=== PATIENT | female | born 1975 | race Two or more races ===

== ENCOUNTER 2016-10-14 05:00 | Inpatient (IN) | payer BC, OTHER ==
[2016-10-14 05:45] VITALS: BMI 25.7
[2016-10-14] MEDS ORDERED: Lactated Ringer's 1,000 ML IV SCH (05:45)
--- NOTE | 2016-10-14 05:45 | OBADHP ---
Datetime: 10/14/2016 05:42 Admit Comment, IP Provider: at 39weeks came with c/o ctxs started at 3.30 am, irrg, 10/07,no vb, lof, +fm. obhx primi pmh den med pnv allk nkda psh den soch den ve /-1 a/p at 39weeks in labor admit to l7d npo/ivf labs pain managem cont teodoro and efm anticipate Pelvic Type - PN: Adequate Extremities - PN: Normal Abdomen - PN: Normal Back - PN: Normal Breast - PN: Normal Lungs - PN: Normal Heart - PN: Normal Thyroid - PN: Normal Neurologic - PN: Normal HEENT - PN: Normal General - PN: Normal FHR - Baseline A Provider: 130 Contraction Comments Provider: q1-4 IP Hx Assessment: The History has been Reviewed and is Current Vital Signs Provider: Reviewed; Within Normal Limits IP Chief Complaint: Uterine contractions NICHD Variability Prov Fetus A: Moderate 6-25bpm NICHD Accel Fetus A IP Provider: [id number] FHR Category Provider Fetus A: Category I Dilatation, Provider: 5 Effacement, Provider: 100 Station, Provider: -1 Genitourinary Exam: Normal DTRs - PN: Normal IP Adm Impression: Term, intrauterine ; Active labor IP Admit Plan: Admit to unit; Initiate labor protocol
[2016-10-14] MEDS ORDERED: Oxycodone/Acetaminophen 5/325 mg Tab PO PRN (06:10)
[2016-10-14] MEDS ORDERED: Benzocaine/Menthol 20%-0.5% Topical Spray (60 ml) TOP PRN (06:10)
[2016-10-14 06:21] LABS: BASO % 0.4 % (0.0-2.0); EOS # 0.1 K/uL (0.0-0.7); EOS % 0.9 % (0.0-4.0); HEMOGLOBIN 11.7 g/dL (11.0-16.0); LYMPH % 26.9 % (20.0-40.0); MEAN CELL VOLUME 91.4 fL (81.0-99.0); MEAN CORPUSCULAR HEMOGLOBIN 30.7 pg (27.0-31.0); MEAN CORPUSCULAR HGB CONC 33.6 g/dL (33.0-37.0); MEAN PLATELET VOLUME 9.1 fL (7.2-11.7); MONO # 1.2 K/uL (0.0-0.8); MONO % 10.9 % (0.0-10.0); NEUT # 6.8 K/uL (1.8-7.0); NEUT % 60.9 % (50.0-75.0); RBC 3.82 Mil/uL (3.80-5.20); RED CELL DISTRIBUTION WIDTH 14.6 % (11.5-14.5); WHITE BLOOD COUNT 11.1 K/uL (4.8-10.8)
[2016-10-14 06:31] LABS: ALB/GLOB RATIO 1.1 (1.0-2.1); ALBUMIN 3.4 g/dL (3.5-5.0); ALT/SGPT 25 U/L (9-52); AST/SGOT 26 U/L (14-36); BLOOD UREA NITROGEN 11 mg/dL (7-17); CALCIUM 8.6 mg/dl (8.6-10.4); GFR AFRICAN-AMERICAN > 60; GFR NON-AFRICAN AMERICAN > 60
[2016-10-14] MEDS ORDERED: Lidocaine 2% Inj (20ml) ONE (06:52)
--- NOTE | 2016-10-14 07:11 | OBDS ---
DELIVERY PERSONNEL Delivery Doctor: Antonio Thompson MD Enrollment Processor: Farzana Hill RN MATERNAL INFORMATION Delivery Anesthesia: Local Medications in Delivery: pitocin 20 units IV Estimated Blood Loss (ml): 200 Placenta Cultured: No Maternal Complications: None Provider Comments: pt was fully dilated and pushing. atruamtic, spontaneous delivery of head, nuchal and body cord x 1, atraumatic, spontaneous delivery of anterior followed by posteror should followed by delivery of body. Both oral and nasal passags of baby were bulb suctioned, umbilcal cord was clam ped and cut. baby handed to mother on abomen with rn assistance. Cord blood collected x 2. Spontane ous delivery of intact placenta with membranes. First degree perineal lacerationed noted and repaire d with 2-0 chromic after local anesthestic administered. Good hemoasis, no complications. live female apgars 9,9 weight of 6lb 8 ounces ebl 200ml no complications LABOR SUMMARY EDC: 10/21/2016 00:00 No. Babies in Womb: 1 Attempted: No Labor Anesthesia: None LABOR INFORMATION Reason for Induction: Not Applicable Onset of Labor: 10/14/2016 03:30 Complete Dilatation: 10/14/2016 06:30 Oxytocin: N/A Group B Beta Strep: Negative Antibiotics # of Doses: 0 Antibiotics Time of Last Dose: 0 Steroids Given: None Reason Steroids Not Administered: Not Applicable MEMBRANES Membranes Rupture Method: Spontaneous Rupture of Membranes: 10/14/2016 06:28 Length of Rupture (hrs): 0.30 Amniotic Fluid Color: Clear Amniotic Fluid Amount: None Amniotic Fluid Odor: Normal STAGES OF LABOR Stage 1 hrs: 3 Stage 1 min: 0 Stage 2 hrs: 0 Stage 2 min: 16 Stage 3 hrs: 0 Stage 3 min: 5 Total Time in Labor hrs: 3 Total Time in Labor min: 21 VAGINAL DELIVERY Episiotomy: None Laceration Extension: First Degree Laceration Repair Note: first degree perineal reapired wth 2-0 chormic after local anesthetic given Initial Vag Sponge Count: 10 Final Vag Sponge Count: 1 Initial Vag Sharps Count: 0 Final Vag Sharps Count: 1 BABY A INFORMATION Infant Delivery Date/Time: 10/14/2016 06:46 Method of Delivery: Vaginal Born in Route : No : N/A Forceps: N/A Vacuum Extraction: N/A Shoulder Dystocia : No SHOULDER DYSTOCIA BABY A Infant Delivery Date/Time: 10/14/2016 06:46 PRESENTATION/POSITION BABY A Presentation: Cephalic PLACENTA INFORMATION BABY A Placenta Delivery Time : 10/14/2016 06:51 Placenta Method of Delivery: Spontaneous Placenta Status: Delivered SCORES BABY A Heart Rate 1 min: >100 bpm Resp Effort 1 min: Good Cry Reflex Irritability 1 min: Cough or Sneeze or Pulls Away Muscle Tone 1 min: Active Motion Color 1 min: Body [place], Extremities Blue SCORE 1 MIN: 9 Heart Rate 5 min: >100 bpm Resp Effort 5 min: Good Cry Reflex Irritability 5 min: Cough or Sneeze or Pulls Away Muscle Tone 5 min: Active Motion Color 5 min: Body [place], Extremities Blue SCORE 5 MIN: 9 INFORMATION BABY A Gestational Age at Delivery: 39.0 Gestational Status: Term Infant Outcome : Liveborn Infant Condition : Stable Infant Sex: Female IDENTIFICATION/MEDS BABY A ID Band Number: [id number] ID Band Location: Left Leg; Left Arm Sensor Applied: Yes Sensor Number: [id number] Sensor Location : Cord Clamp Vitamin K Given : Aquamephyton 1 mg IM; Left Thigh Erythromycin Given: Given Both Eyes WEIGHT/LENGTH BABY A Infant Birthweight (gms): 2950 Infant Weight (lb): 6 Infant Weight (oz): 8 Length Inches: 20.00 Infant Length cms: 50.8 CORD INFORMATION BABY A No. Cord Vessels: 3 Nuchal Cord : N/A Cord Blood Taken: Yes Infant Suction: Mouth ASSESSMENT BABY A Infant Complications: None Infant Complications Other: none Physical Findings at Delivery: Within Normal Limits Respirations: Appears Normal Video Manager/ALS Called : No Transferred To: [place] [facility]
[2016-10-15 09:19] LABS: HEMOGLOBIN 11.6 g/dL (11.0-16.0); MEAN CORPUSCULAR HEMOGLOBIN 29.9 pg (27.0-31.0); MEAN CORPUSCULAR HGB CONC 31.9 g/dL (33.0-37.0); MEAN PLATELET VOLUME 9.2 fL (7.2-11.7); RBC 3.88 Mil/uL (3.80-5.20); RED CELL DISTRIBUTION WIDTH 15.2 % (11.5-14.5); WHITE BLOOD COUNT 13.3 K/uL (4.8-10.8)
[2016-10-15 09:23] LABS: MEAN CELL VOLUME 93.7 fL (81.0-99.0)
--- NOTE | 2016-10-15 12:57 | OBPPN ---
Datetime: 10/15/2016 09:15 PP Pain Prov: Within normal limits PP Nausea Prov: Denies PP Flatus Prov: Yes PP Heart Prov: Normal PP Lungs Prov: Normal PP Abdomen/Uterus Prov: Normal PP Lochia Prov: Normal PP CVA Tenderness Prov: Normal PP Extremities Prov: Normal PP C/S Incision Prov: Not Applicable PP Progress Prov: Normal PP Impression Prov: Normal progression PP Plan Prov: Continue present management PP Progress Note Prov: S-patient denies any complaints.reports adequate pain control.denies nausea, vomiting, headache, chest pain, shortness of breath, numbness or tingling in hands and feet O-VSS Afebrile Fundus firm and below umbilcius Extremities no calf tenderness A/P Patient s/p vaginal delivery PPD 1 doing well -continue routine care Vital Signs Provider PP: Reviewed; Within Normal Limits
[2016-10-16 10:53] VITALS: BP 106/69; PULSE 79; RESP 18; TEMP 98; O2SAT 98
--- NOTE | 2016-10-16 19:03 | OBDCSUM ---
Datetime: 10/16/2016 11:41 Discharged to, Provider: Home Follow up at, Provider: Dr. Thompson Disch Instr Activity: Normal activity Disch Instr Diet: Regular Discharge Instructions, Provider: Routine instructions given Discharge Diagnosis, Provider: Term Delivered Discharge Time: 10/16/2016 11:41 Follow up in weeks, Provider: November 25, 2016 Disch Referrals: None Contraception discussed, Prov: Yes Disch Activity Restrictions: No exercising; No lifting; No driving; Minimize walking; Minimize stair -climbing; No sexual activity; Nothing in vagina - [place], tampons, douche Discharge Comment, Provider: precautoin given Datetime: 10/16/2016 07:50 Discharged to, Provider: Home Follow up at, Provider: [facility] Disch Instr Activity: Normal activity Disch Instr Diet: Regular Discharge Instructions, Provider: Routine instructions given Discharge Diagnosis, Provider: Term Delivered Discharge Time: 10/16/2016 11:41 Follow up in weeks, Provider: clinic Disch Referrals: None Contraception discussed, Prov: Yes Disch Activity Restrictions: No exercising; No lifting; No driving; Minimize walking; Minimize stair -climbing; No sexual activity; Nothing in vagina - [place], tampons, douche Discharge Comment, Provider: no sex motrin prn cont pnv f/u in 6weeks Discharge Diagnosis Prov Other: s/p Contraception after Delivery: Not Planning to Use
--- NOTE | 2016-10-16 19:03 | OBPPN ---
Datetime: 10/16/2016 07:49 PP Pain Prov: Within normal limits PP Pain Prov comment: well controlled PP Nausea Prov: Denies PP Flatus Prov: Yes PP Abdomen/Uterus Prov: Normal PP Lochia Prov: Normal PP Extremities Prov: Normal PP Comments Phys Exam Prov: fudus below umbl;icus ext no edema,no calf ten PP Impression Prov: Normal progression PP Plan Prov: Discharge PP Progress Note Prov: pt was seen at bed side, pain under control,no n/v, tolerating deit,voiding,m in lochia, flatus+ ppd#2 s/p dc home no sex motrin prn f/u in 6weeks Vital Signs Provider PP: Reviewed; Within Normal Limits
== END 2016-10-16 13:15 | disposition home or self-care (01) | DRG 775 ==
LOC: C.EROB 05:00 → C.4D 05:45 → C.4M 08:00
PROVIDERS: ADMIT Obstetrics & Gynecology; ATTEND Obstetrics & Gynecology
PROC: 10E0XZZ Delivery of Products of Conception, External Approach (ICD-10-PCS; principal; 2016-10-14)
PROC: 0HQ9XZZ Repair Perineum Skin, External Approach (ICD-10-PCS; 2016-10-14)
DX: O69.81X0 Labor and delivery complicated by cord around neck, without compression, not applicable or unspecified (principal); O09.523 Supervision of elderly multigravida, third trimester; O70.0 First degree perineal laceration during delivery; Z3A.39 39 weeks gestation of pregnancy; Z37.0 Single live birth